=== PATIENT | male | born 1955 | race American Indian/Alaskan Native ===

== ENCOUNTER 2019-02-14 09:49 | Emergency (ER) | payer BC ==
[~2019-02-14] VITALS: Ht 167.6 cm; Wt 99.1 kg
[~2019-02-14 09:49] MED LIST: APIX5TAB3 PO; CEPH-571 PO; CLOP75TA4 PO; CYCL-1 PO; GEMF600T89 PO; LISI-600 PO; METF500T PO; METO-539 PO; MONT10TA24 PO; SIMV20TA5 PO
[2019-02-14 11:04] LABS: BASOPHILS % (AUTO) 0.2 % (0-1); EOSINOPHILS # (AUTO) 0.1 X10'3 (0-0.9); EOSINOPHILS % (AUTO) 0.9 % (0-6); HEMATOCRIT 41.3 % (42.0-52.0); HEMOGLOBIN 13.9 g/dl (14.0-17.9); LYMPHOCYTES # (AUTO) 1.3 X10'3 (1.1-4.8); LYMPHOCYTES % (AUTO) 20.1 % (21-51); MEAN CORPUSCULAR HEMOGLOBIN 30.8 PG (27.0-31.0); MEAN CORPUSCULAR HGB CONC 33.6 g/dL (33.0-36.5); MEAN CORPUSCULAR VOLUME 91.6 FL (78-98); MEAN PLATELET VOLUME 8.4 FL (7.4-10.4); MONOCYTES # (AUTO) 0.5 X10'3 (0-0.9); MONOCYTES % (AUTO) 7.4 % (2-12); NEUTROPHILS # (AUTO) 4.6 X10'3 (1.8-7.7); NEUTROPHILS % (AUTO) 71.4 % (42-75); PLATELET COUNT 207 X10'3 (140-440); RED CELL DISTRIBUTION WIDTH 13.9 % (11.5-14.5); WHITE BLOOD COUNT 6.4 X10'3 (4.5-11.0)
[2019-02-14 11:08] LABS: PARTIAL THROMBOPLASTIN TIME 30 SECONDS (22-32)
[2019-02-14 11:12] LABS: ALANINE AMINOTRANSFERASE 36 U/L (12-78); ALBUMIN 3.5 G/DL (3.4-5.0); ALKALINE PHOSPHATASE 67 IU/L (46-116); ANION GAP 7 (8-16); ASPARTATE AMINO TRANSFERASE 15 U/L (10-37); BILIRUBIN,TOTAL 0.2 MG/DL (0.1-1.0); BLOOD UREA NITROGEN 10 MG/DL (7-18); BUN/CREATININE RATIO 11.5 (5.4-32.0); CALCIUM 9.3 MG/DL (8.5-10.1); CHLORIDE 104 MMOL/L (99-107); CREATININE 0.87 MG/DL (0.60-1.10); GLUCOSE 151 MG/DL (70-104); POTASSIUM 4.2 MMOL/L (3.5-5.1); SODIUM 138 MMOL/L (135-145); TOTAL CARBON DIOXIDE 26.8 MMOL/L (24-32); TOTAL PROTEIN 7.1 G/DL (6.4-8.2); eGFR 88 ML/MIN
--- NOTE | 2019-02-14 12:22 | NUR ---
PT REPORTS FEELING "WOOZY" WHEN GETTING UP TO WALK TO BATHROOM APPROX 30 MIN AGO, DID ORTHOSTATIC VS AND PT WNL AND NO DIZZY OR WOOZY FEELING BUT PT DID GO FROM SITTING TO STANDING VERY QUICKLY, EDUCATED PT OF GETTING UP MORE SLOWLY FROM LYING AND SITTING, [employer]OMENA KELLY INFORMED RECEIVED VERBAL ORDER TO GIVE PT 1 LITER BOLUS NS WHILE PT WAITS FOR 3 HOUR TROPONIN LAB TO BE DRAWN.
[2019-02-14] MEDS ORDERED: normal saline 1000ml 1,000 ML IV ONE (12:25)
--- NOTE | 2019-02-14 14:06 | NUR ---
Pt gait tested per provider order. Pt denies any dizziness, pt ambulated with steady gait.
[2019-02-14 14:23] VITALS: BP 147/74
== END 2019-02-14 14:24 | disposition home or self-care (01) ==
LOC: ER 09:50
DX: R42 Dizziness and giddiness (principal); E78.00 Pure hypercholesterolemia, unspecified; I10 Essential (primary) hypertension; I25.2 Old myocardial infarction; E11.9 Type 2 diabetes mellitus without complications; Z90.49 Acquired absence of other specified parts of digestive tract; Z98.890 Other specified postprocedural states; Z79.899 Other long term (current) drug therapy
CPT/HCPCS: 36415; 71045; 80053; 84484; 85025; 85610; 85730; 96360; 99284; J7030

== ENCOUNTER 2020-02-02 20:39 | Emergency (ER) | payer MEDICARE, BC ==
[~2020-02-02] VITALS: Ht 165.1 cm; Wt 100.0 kg
[~2020-02-02 20:39] MED LIST changes: -MONT10TA24 PO; +MONT10TA26 PO; +SIMV-42 PO; -SIMV20TA5 PO
--- NOTE | 2020-02-02 21:14 | NUR ---
PT CAME OUT OF ROOM AND VERBALIZED THAT HE HAS REMOVED HIS RING . DR DURAN NOTIFIED
[2020-02-02] MEDS ORDERED: morphine 4 MG/ML inj SYRINge IM ONE (21:35)
[2020-02-02] MEDS ORDERED: HYDR-4383 PO (21:59)
[2020-02-02] MEDS ORDERED: HYDROcodone/acetaminophen 10/325mg tab PO ONE (22:00)
[2020-02-02] MEDS ORDERED: bacitracin 15gm ointment TP ONE (22:05)
[2020-02-02] MEDS ORDERED: BACI28OI9 TP (22:07)
[2020-02-02] MEDS ORDERED: BACI28.42 TOP (22:11)
[2020-02-02 23:40] VITALS: BP 138/58
== END 2020-02-02 23:15 | disposition home or self-care (01) ==
LOC: ER 20:39
DX: T23.262A Burn of second degree of back of left hand, initial encounter (principal); T23.001A Burn of unspecified degree of right hand, unspecified site, initial encounter; E78.00 Pure hypercholesterolemia, unspecified; I10 Essential (primary) hypertension; I25.2 Old myocardial infarction; E11.9 Type 2 diabetes mellitus without complications; Z90.89 Acquired absence of other organs; Z79.2 Long term (current) use of antibiotics; Z79.899 Other long term (current) drug therapy; X08.8XXA Exposure to other specified smoke, fire and flames, initial encounter; Y93.89 Activity, other specified; Y92.89 Other specified places as the place of occurrence of the external cause; Y99.8 Other external cause status
CPT/HCPCS: 96372; 99283; J2270

== ENCOUNTER 2020-05-12 18:05 | Emergency (ER) | payer MEDICARE, BC ==
[~2020-05-12] VITALS: Ht 165.1 cm; Wt 98.4 kg
[~2020-05-12 18:05] MED LIST changes: +BACI28.42 TOP; +BACI28OI9 TP; +HYDR-4383 PO
[2020-05-12 18:29] VITALS: BP 144/99
[2020-05-12] MEDS ORDERED: proparacaine 0.5% ophthalmic drops 15ml EACHEYE ONE (20:30)
[2020-05-12] MEDS ORDERED: ERYT1OIN6 EACHEYE (20:55)
[2020-05-12] MEDS ORDERED: erythromycin ophthalmic ointment 1gm tube RIGHTEYE ONE (20:55)
== END 2020-05-12 21:08 | disposition home or self-care (01) ==
LOC: ER 18:06
DX: S05.51XA Penetrating wound with foreign body of right eyeball, initial encounter (principal); H57.11 Ocular pain, right eye; L53.8 Other specified erythematous conditions; H53.8 Other visual disturbances; E78.00 Pure hypercholesterolemia, unspecified; I10 Essential (primary) hypertension; I25.2 Old myocardial infarction; E11.9 Type 2 diabetes mellitus without complications; Z90.89 Acquired absence of other organs; Z98.890 Other specified postprocedural states; Z79.2 Long term (current) use of antibiotics; Z79.899 Other long term (current) drug therapy
CPT/HCPCS: 65205; 65222; 99284

== ENCOUNTER 2020-11-23 10:49 | Emergency (ER) | payer MEDICARE, BC ==
[~2020-11-23] VITALS: Ht 165.1 cm; Wt 99.2 kg
[~2020-11-23 10:49] MED LIST changes: -LISI-600 PO; +LISI20TA28 PO; -MONT10TA26 PO; +MONT10TA32 PO
[2020-11-23] MEDS ORDERED: normal saline 1000ML IV soln IVB ONE (12:10)
[2020-11-23 12:38] LABS: BASOPHILS % (AUTO) 0.7 % (0-1); EOSINOPHILS # (AUTO) 0.1 X10'3 (0-0.9); EOSINOPHILS % (AUTO) 0.8 % (0-6); HEMATOCRIT 43.5 % (42.0-52.0); HEMOGLOBIN 14.2 g/dl (14.0-17.9); LYMPHOCYTES # (AUTO) 1.4 X10'3 (1.1-4.8); LYMPHOCYTES % (AUTO) 20.6 % (21-51); MEAN CORPUSCULAR HEMOGLOBIN 30.2 PG (27.0-31.0); MEAN CORPUSCULAR HGB CONC 32.7 g/dL (33.0-36.5); MEAN CORPUSCULAR VOLUME 92.4 FL (78-98); MEAN PLATELET VOLUME 8.2 FL (7.4-10.4); MONOCYTES # (AUTO) 0.5 X10'3 (0-0.9); MONOCYTES % (AUTO) 7.2 % (2-12); NEUTROPHILS # (AUTO) 4.9 X10'3 (1.8-7.7); NEUTROPHILS % (AUTO) 70.7 % (42-75); PLATELET COUNT 248 X10'3 (140-440); RED BLOOD COUNT 4.71 X10'6 (4.70-6.10); RED CELL DISTRIBUTION WIDTH 14.4 % (11.5-14.5); WHITE BLOOD COUNT 6.9 X10'3 (4.5-11.0)
[2020-11-23 12:53] LABS: ALANINE AMINOTRANSFERASE 34 U/L (12-78); ALBUMIN 3.7 G/DL (3.4-5.0); ALBUMIN/GLOBULIN RATIO 0.9 (1.1-1.5); ALKALINE PHOSPHATASE 76 IU/L (46-116); ANION GAP 7 (8-16); ASPARTATE AMINO TRANSFERASE 10 U/L (10-37); BILIRUBIN,TOTAL 0.2 MG/DL (0.1-1.0); BLOOD UREA NITROGEN 17 MG/DL (7-18); BUN/CREATININE RATIO 17.9 (5.4-32.0); CALCIUM 9.9 MG/DL (8.5-10.1); CHLORIDE 104 MMOL/L (99-107); CREATININE 0.95 MG/DL (0.60-1.10); GLUCOSE 264 MG/DL (70-104); POTASSIUM 4.6 MMOL/L (3.5-5.1); SODIUM 141 MMOL/L (135-145); TOTAL CARBON DIOXIDE 30.4 MMOL/L (24-32); TOTAL PROTEIN 7.7 G/DL (6.4-8.2); eGFR 79 ML/MIN
[2020-11-23 12:58] LABS: TROPONIN I < 0.04 NG/ML (0.0-0.05)
[2020-11-23 14:18] LABS: CLARITY,URINE CLEAR (Clear); COLOR,URINE YELLOW (Yellow); GLUCOSE, URINE 500 mg/dl (Neg); KETONES,URINE NEGATIVE (Neg); LEUKOCYTE ESTERASE ,URINE NEGATIVE (Neg); NITRITES, URINE NEGATIVE (Neg); OCCULT BLOOD,URINE NEGATIVE (Neg); PROTEIN,URINE NEGATIVE (Neg); UROBILINOGEN,URINE 0.2 E.U/dL (0.2-1.0)
[2020-11-23 14:30] LABS: UA COLLECTION TYPE URINAL
[2020-11-23 17:00] VITALS: BP 137/72
== END 2020-11-23 17:02 | disposition home or self-care (01) ==
LOC: ER 10:50
DX: E11.65 Type 2 diabetes mellitus with hyperglycemia (principal); Z20.822 Contact with and (suspected) exposure to COVID-19; R53.1 Weakness; I10 Essential (primary) hypertension; E11.9 Type 2 diabetes mellitus without complications; I25.2 Old myocardial infarction; E78.00 Pure hypercholesterolemia, unspecified; Z86.718 Personal history of other venous thrombosis and embolism; Z86.711 Personal history of pulmonary embolism; Z86.16 Personal history of COVID-19; Z79.2 Long term (current) use of antibiotics; Z79.899 Other long term (current) drug therapy; Z90.49 Acquired absence of other specified parts of digestive tract
CPT/HCPCS: 36415; 70450; 71045; 80053; 81003; 84484; 85025; 87635; 93005; 96360; 99285; C9803; J7030; U0003

== ENCOUNTER 2021-07-25 11:20 | Emergency (ER) | payer MEDICARE, BC ==
[~2021-07-25] VITALS: Ht 162.6 cm; Wt 90.9 kg
[~2021-07-25 11:20] MED LIST changes: +MONT-40 PO; -MONT10TA32 PO
[2021-07-25 12:06] VITALS: BP 164/89
== END 2021-07-25 13:49 | disposition home or self-care (01) ==
LOC: ER 11:21
DX: J06.9 Acute upper respiratory infection, unspecified (principal); Z20.822 Contact with and (suspected) exposure to COVID-19; E78.00 Pure hypercholesterolemia, unspecified; I10 Essential (primary) hypertension; I25.2 Old myocardial infarction; E11.9 Type 2 diabetes mellitus without complications; Z79.899 Other long term (current) drug therapy; Z90.49 Acquired absence of other specified parts of digestive tract
CPT/HCPCS: 71045; 87635; 99284; C9803

== ENCOUNTER 2021-10-12 07:06 | Emergency (ER) | payer MEDICARE, BC ==
[~2021-10-12] VITALS: Ht 165.1 cm; Wt 94.0 kg
[2021-10-12] MEDS ORDERED: normal saline 1000ML IV soln IVB ONE (07:50)
[2021-10-12] MEDS ORDERED: ondansetron/PF 4mg/2ml inj IV ONE (07:50)
[2021-10-12 08:36] LABS: CLARITY,URINE CLEAR (Clear); COLOR,URINE YELLOW (Yellow); GLUCOSE, URINE NEGATIVE (Neg); KETONES,URINE 15 mg/dl (Neg); LEUKOCYTE ESTERASE ,URINE NEGATIVE (Neg); NITRITES, URINE NEGATIVE (Neg); OCCULT BLOOD,URINE NEGATIVE (Neg); PH,URINE 5.5 (4.8-8.0); PROTEIN,URINE NEGATIVE (Neg); UROBILINOGEN,URINE 0.2 E.U/dL (0.2-1.0)
[2021-10-12 08:37] LABS: UA COLLECTION TYPE CLN CATCH MIDSTREAM
[2021-10-12 09:30] LABS: BASOPHILS % (AUTO) 0.3 % (0-1); EOSINOPHILS # (AUTO) 0.1 X10'3 (0-0.9); HEMATOCRIT 40.6 % (42.0-52.0); HEMOGLOBIN 13.8 g/dl (14.0-17.9); LYMPHOCYTES # (AUTO) 1.3 X10'3 (1.1-4.8); LYMPHOCYTES % (AUTO) 20.9 % (21-51); MEAN CORPUSCULAR HEMOGLOBIN 30.9 PG (27.0-31.0); MEAN CORPUSCULAR HGB CONC 33.9 g/dL (33.0-36.5); MEAN CORPUSCULAR VOLUME 91.1 FL (78-98); MEAN PLATELET VOLUME 8.4 FL (7.4-10.4); MONOCYTES # (AUTO) 0.4 X10'3 (0-0.9); MONOCYTES % (AUTO) 6.8 % (2-12); NEUTROPHILS # (AUTO) 4.5 X10'3 (1.8-7.7); PLATELET COUNT 244 X10'3 (140-440); RED BLOOD COUNT 4.46 X10'6 (4.70-6.10); RED CELL DISTRIBUTION WIDTH 14.6 % (11.5-14.5); WHITE BLOOD COUNT 6.3 X10'3 (4.5-11.0)
[2021-10-12 09:46] LABS: ALANINE AMINOTRANSFERASE 24 U/L (12-78); ALBUMIN 3.5 G/DL (3.4-5.0); ALKALINE PHOSPHATASE 61 IU/L (46-116); ANION GAP 9 (8-16); ASPARTATE AMINO TRANSFERASE 12 U/L (10-37); BILIRUBIN,TOTAL 0.4 MG/DL (0.1-1.0); BLOOD UREA NITROGEN 12 MG/DL (7-18); BUN/CREATININE RATIO 14.6 (5.4-32.0); CALCIUM 8.2 MG/DL (8.5-10.1); CHLORIDE 104 MMOL/L (99-107); CREATININE 0.82 MG/DL (0.60-1.10); GLUCOSE 141 MG/DL (70-104); POTASSIUM 3.9 MMOL/L (3.5-5.1); SODIUM 140 MMOL/L (135-145); TOTAL CARBON DIOXIDE 27.1 MMOL/L (24-32); TOTAL PROTEIN 6.9 G/DL (6.4-8.2); eGFR > 90 ML/MIN
[2021-10-12 09:56] LABS: LIPASE 80 U/L (73-393)
[2021-10-12] MEDS ORDERED: ONDA4TAB12 PO (11:02)
[2021-10-12 11:33] VITALS: BP 148/86
== END 2021-10-12 11:34 | disposition home or self-care (01) ==
LOC: ER 07:06
DX: A05.9 Bacterial foodborne intoxication, unspecified (principal); Z20.822 Contact with and (suspected) exposure to COVID-19; N28.1 Cyst of kidney, acquired; K52.9 Noninfective gastroenteritis and colitis, unspecified; R10.13 Epigastric pain; R10.11 Right upper quadrant pain; E78.00 Pure hypercholesterolemia, unspecified; I10 Essential (primary) hypertension; I25.2 Old myocardial infarction; E11.9 Type 2 diabetes mellitus without complications; Z90.89 Acquired absence of other organs; Z79.2 Long term (current) use of antibiotics; Z79.899 Other long term (current) drug therapy
CPT/HCPCS: 36415; 71045; 74176; 80053; 81003; 83690; 84443; 84484; 85025; 87635; 96361; 96374; 99285; C9803; J2405; J7030

== ENCOUNTER 2022-06-17 01:32 | Emergency (ER) | payer MEDICARE, BC ==
[~2022-06-17] VITALS: Ht 165.1 cm; Wt 103.0 kg
[~2022-06-17 01:32] MED LIST changes: +ONDA4TAB12 PO
[2022-06-17 02:23] LABS: BASOPHILS % (AUTO) 0.3 % (0-1); EOSINOPHILS % (AUTO) 0.3 % (0-6); HEMATOCRIT 39.3 % (42.0-52.0); HEMOGLOBIN 13.1 g/dl (14.0-17.9); LYMPHOCYTES # (AUTO) 1.2 X10'3 (1.1-4.8); LYMPHOCYTES % (AUTO) 12.4 % (21-51); MEAN CORPUSCULAR HEMOGLOBIN 31.6 PG (27.0-31.0); MEAN CORPUSCULAR HGB CONC 33.3 g/dL (33.0-36.5); MEAN CORPUSCULAR VOLUME 95.1 FL (78-98); MEAN PLATELET VOLUME 8.4 FL (7.4-10.4); MONOCYTES # (AUTO) 0.7 X10'3 (0-0.9); MONOCYTES % (AUTO) 7.7 % (2-12); NEUTROPHILS # (AUTO) 7.7 X10'3 (1.8-7.7); NEUTROPHILS % (AUTO) 79.3 % (42-75); PLATELET COUNT 202 X10'3 (140-440); RED BLOOD COUNT 4.13 X10'6 (4.70-6.10); WHITE BLOOD COUNT 9.7 X10'3 (4.5-11.0)
[2022-06-17 02:41] LABS: ALANINE AMINOTRANSFERASE 26 U/L (12-78); ALBUMIN 3.9 G/DL (3.4-5.0); ALBUMIN/GLOBULIN RATIO 1.1 (1.1-1.5); ALKALINE PHOSPHATASE 58 IU/L (46-116); ANION GAP 9 (8-16); ASPARTATE AMINO TRANSFERASE 13 U/L (10-37); BILIRUBIN,TOTAL 0.2 MG/DL (0.1-1.0); BLOOD UREA NITROGEN 30 MG/DL (7-18); BUN/CREATININE RATIO 22.2 (5.4-32.0); CALCIUM 9.2 MG/DL (8.5-10.1); CHLORIDE 103 MMOL/L (99-107); CREATININE 1.35 MG/DL (0.60-1.10); GLUCOSE 217 MG/DL (70-104); SODIUM 141 MMOL/L (135-145); TOTAL CARBON DIOXIDE 29.3 MMOL/L (24-32); TOTAL PROTEIN 7.4 G/DL (6.4-8.2); eGFR 53 ML/MIN
[2022-06-17 10:10] VITALS: BP 124/82
== END 2022-06-17 10:13 | disposition home or self-care (01) ==
LOC: ER 01:32
DX: E11.649 Type 2 diabetes mellitus with hypoglycemia without coma (principal); R53.1 Weakness; I10 Essential (primary) hypertension; E78.5 Hyperlipidemia, unspecified; E78.00 Pure hypercholesterolemia, unspecified; I25.2 Old myocardial infarction; Z90.89 Acquired absence of other organs; Z98.890 Other specified postprocedural states; Z79.2 Long term (current) use of antibiotics; Z79.899 Other long term (current) drug therapy
CPT/HCPCS: 36415; 71045; 80053; 82948; 83880; 84484; 85025; 93005; 99285